=== PATIENT | female | born 1945 | race Caucasian/White ===

== ENCOUNTER → 2016-09-30 | Outpatient (CLI) | payer MEDICARE ==
--- NOTE | 2016-09-30 15:59 | BD ---
EXAMINATION TYPE: MG DEXA axial skeleton. DATE OF EXAM: 09/30/2016 11:35 AM COMPARISON: 12.30.2001 CLINICAL HISTORY: Z13.820 OSTEOPOROSIS Height: 63 Weight: 148 FRAX RISK QUESTIONS: Alcohol (3 or more units per day): NO Family History (Parent hip fracture): NO Glucocorticoids (More than 3mos): NO (Ex: prednisone, prednisolone, methylprednisolone, dexamethasone, and hydrocortisone). History of Fracture in Adulthood: NO Secondary Osteoporosis: 1. Type 1 Diabetes: NO 2. Hyperthyroidism: NO 3. Menopause before 45: NO 4. Malnutrition: NO 5. Chronic liver disease: NO Rheumatoid Arthritis: NO Current Tobacco Use: YES RISK FACTORS HISTORY OF: Family History of Osteoporosis: NO Smoke tobacco: YES, 1 PAC DAILY Drink Alcohol: SOCIAL Active: YES, PRETTY MUCH Diet low in dairy products/other sources of calcium: NO Postmenopausal woman: YES AT AGE 51 Lost more than 2 inches in height since high school: YES Adrenal Insufficiency: NO MEDICATIONS: Additional Medications: BP MEDS, STATIN FOR CHOLESTEROL, ATIVAN, CALCIUM AND VIT D WHEN SHE REMEMBERS Additional History: SMOKER, HYPERTENSION, HIGH CHOLESTEROL, ANXIETY EXAM MEASUREMENTS: Bone mineral densitometry was performed using the [employer]. Bone mineral density as measured about the Lumbar spine is: ----- L1-L4(G/cm2): 1.163 T Score Values are as follows: ----- L1: -0.7 ----- L2: -0.4 ----- L3: 0.1 ----- L4: 0.0 ----- L1-L4: -0.1 Bone mineral density has: Increased 4.6% since study of: 12.30.2001 Bone mineral density about the R hip (g/cm2): 0.792 Bone mineral density about the L hip (g/cm2): 0.808 T Score values are as follows: -----R Neck: -1.8 -----L Neck: -1.7 -----R Intertrochanter: -2.1 -----L Intertrochanter: -1.5 Bone mineral density has: Decreased -9.6% since study of: 12.30.2001 FRAX%'S: FOR MAJOR OSTEOPOROTIC FX: 11.5%.....FOR HIP FX: 3.2% PROBABILITY OF FX IN 10 YR S TIME IMPRESSION: Osteopenia (T Score between -2.5 and -1 as noted by T score values There is slightly increased risk of fracture and the patient may be considered for treatment. Re-Screen 1-2 years. NOTE: T-SCORE=SD OF THE YOUNG ADULT MEAN.
--- NOTE | 2016-10-02 09:38 | MM ---
Reason for exam: screening (asymptomatic). Last mammogram was performed 1 year and 6 months ago. History: Patient is postmenopausal. Family history of breast cancer in maternal aunt. 3 benign excisional biopsies of the left breast. Physical Findings: A clinical breast exam by your physician is recommended on an annual basis and results should be correlated with mammographic findings. MG 3D Screening Mammo W/Cad Bilateral CC and MLO view(s) were taken. Prior study comparison: March 27, 2015, bilateral MG screening mammo w CAD. March 25, 2014, bilateral MG screening mammo w CAD. The breast tissue is heterogeneously dense. This may lower the sensitivity of mammography. No significant changes when compared with prior studies. ASSESSMENT: Benign, BI-RAD 2 RECOMMENDATION: Routine screening mammogram of both breasts in 1 year.
== END | disposition home or self-care (01) ==
LOC: RADMAMWWP 10:33
PROVIDERS: ATTEND Internal Medicine
DX: Z12.31 Encounter for screening mammogram for malignant neoplasm of breast (principal); M85.80 Other specified disorders of bone density and structure, unspecified site
CPT/HCPCS: 77080; 77063; G0202

== ENCOUNTER → 2018-01-21 | Outpatient (CLI) | payer MEDICARE ==
--- NOTE | 2018-01-22 10:48 | MM ---
Reason for exam: screening (asymptomatic). Last mammogram was performed 1 year and 4 months ago. History: Patient is postmenopausal. Family history of breast cancer in maternal aunt. 3 benign excisional biopsies of the left breast. Physical Findings: A clinical breast exam by your physician is recommended on an annual basis and results should be correlated with mammographic findings. MG 3D Screening Mammo W/Cad Bilateral CC and MLO view(s) were taken. Prior study comparison: September 30, 2016, bilateral MG 3d screening mammo w/cad. March 27, 2015, bilateral MG screening mammo w CAD. No significant changes when compared with prior studies. ASSESSMENT: Benign, BI-RAD 2 RECOMMENDATION: Routine screening mammogram of both breasts in 1 year.
== END | disposition home or self-care (01) ==
LOC: RADMAMWWP 13:46
PROVIDERS: ATTEND Internal Medicine
DX: Z12.31 Encounter for screening mammogram for malignant neoplasm of breast (principal)
CPT/HCPCS: 77063; 77067

== ENCOUNTER → 2019-02-03 | Outpatient (CLI) | payer MEDICARE ==
--- NOTE | 2019-02-03 14:16 | CTL ---
EXAMINATION TYPE: CT Low Dose Lung DATE OF EXAM ORDERED: 02/03/2019 HISTORY: Personal history of tobacco abuse. Lung cancer screening CT DLP: 76.[address] CTDI: 2.2 mGy Automated exposure control for dose reduction was used. SCREENING VISIT: Initial COMPARISON: None TECHNIQUE: Low dose computed tomography scan was performed through the chest at 1 mm thick sections a nd reconstructed images in the coronal plane at [address] DIAGNOSTIC QUALITY: Satisfactory FINDINGS: LUNG NODULES: Present, detailed below: There is a subsolid right upper lobe 4 mm pulmonary nodule on series 4 image 91. There is a solid 2 mm pulmonary nodule in the right upper lobe laterally on image 111. LUNGS: COPD: Severity: Minimal centrilobular Fibrosis: Severity: Minimal apical scarring. No other fibrosis. Lymph nodes: Nonenlarged Other findings: There is a patchy groundglass density new branching vessels on series 4 image 95 post eriorly in the right upper lobe. Bandlike pleural parenchymal scarring is seen at the medial left ange g base. Some nodular thickening along the left hemidiaphragm as seen on series 4 image 250. Mild righ t hemidiaphragm elevation. RIGHT PLEURAL SPACE: Effusion: None Calcification: None Thickening: None Pneumothorax: None LEFT PLEURAL SPACE: Effusion: None Calcification: None Thickening: None Pneumothorax: None HEART: Heart Size: Nonenlarged, incidentally noted bovine configuration of the aortic arch, normal variant Coronary calcification: Mild Pericardial effusion: None OTHER FINDINGS: Upper abdomen: Small hiatal hernia Bony thorax: Mild multilevel degenerative change Supraclavicular region: Unremarkable IMPRESSION: Lung RADS 2-benign appearance or behavior-nodules with a very low likelihood of becoming a clinically active cancer due to size. Right sided nodules for which continued annual screening with low dose CT in 12 months is recommended. FOLLOW UP CT CHEST RECOMMENDATION: Continued annual screening with low dose CT in [address] LUNG RAD: 2
== END | disposition home or self-care (01) ==
LOC: RADCTMAIN 13:30
PROVIDERS: ATTEND Internal Medicine
DX: Z12.2 Encounter for screening for malignant neoplasm of respiratory organs (principal); R91.8 Other nonspecific abnormal finding of lung field; Z79.891 Long term (current) use of opiate analgesic

== ENCOUNTER → 2019-03-04 | Outpatient (CLI) | payer MEDICARE ==
--- NOTE | 2019-03-04 17:37 | BD ---
EXAMINATION TYPE: Axial Bone Density DATE OF EXAM: 03/04/2019 COMPARISON: 2017 CLINICAL HISTORY: 73-year-old female osteoporosis Height: 63 inches Weight: 152 FRAX RISK QUESTIONS: Alcohol (3 or more units per day): no Family History (Parent hip fracture): no Glucocorticoids (More than 3mos): no (Ex: prednisone, prednisolone, methylprednisolone, dexamethasone, and hydrocortisone). History of Fracture in Adulthood: no Secondary Osteoporosis: 1. Type 1 Diabetes: no 2. Hyperthyroidism: no 3. Menopause before 45: no 4. Malnutrition: no 5. Chronic liver disease: no Rheumatoid Arthritis: no Current Tobacco Use: yes RISK FACTORS HISTORY OF: Family History of Osteoporosis: no Active: yes Diet low in dairy products/other sources of calcium: somewhat Postmenopausal woman: yes Take estrogen and/or progesterone medications: no Lost more than 2 inches in height since high school: unsure, does not recall height in High School Frequent falls: no Poor Health: no Hyperparathyroidism: no Adrenal Insufficiency: no MEDICATIONS: Prednisone or other steroids: no Thyroid Medications: no Osteoporosis Medications: yes Which medication: Alendronate sodium How Long: about one year Additional Medications: blood pressure med Additional History: EXAM MEASUREMENTS: Bone mineral densitometry was performed using the [employer]. Bone mineral density as measured about the Lumbar spine is: ----- L1-L4(G/cm2): 1.191 T Score Values are as follows: ----- L2: -0.5 ----- L3: 0.8 ----- L4: 0.4 ----- L1-L4: 0.1 Bone mineral density has: Increased 3.6% since study of: 09/30/2016 Bone mineral density about the R hip (g/cm2): 0.816 Bone mineral density about the L hip (g/cm2): 0.795 T Score values are as follows: -----R Neck: -1.6 -----L Neck: -1.7 -----R Total: -1.4 -----L Total: -1.5 Bone mineral density has: Increased 3.0% since study of: 09/30/2016 IMPRESSION: Osteopenia (T Score between -2.5 and -1). There is slightly increased risk of fracture and the patient may be considered for treatment. Re-Screen 2-5 years. NOTE: T-SCORE=SD OF THE YOUNG ADULT MEAN.
--- NOTE | 2019-03-09 09:43 | MM ---
Reason for exam: screening (asymptomatic). Last mammogram was performed 1 year and 1 month ago. History: Patient is postmenopausal. Family history of breast cancer in maternal aunt. 3 benign excisional biopsies of the left breast. Physical Findings: A clinical breast exam by your physician is recommended on an annual basis and results should be correlated with mammographic findings. MG 3D Screening Mammo W/Cad Bilateral CC and MLO view(s) were taken. Prior study comparison: January 21, 2018, bilateral MG 3d screening mammo w/cad. September 30, 2016, bilateral MG 3d screening mammo w/cad. The breast tissue is heterogeneously dense. This may lower the sensitivity of mammography. Benign appearing bilateral calcifications. No suspicious abnormality. Post surgical change on the left. No significant changes when compared with prior studies. ASSESSMENT: Benign, BI-RAD 2 RECOMMENDATION: Routine screening mammogram of both breasts in 1 year.
== END | disposition home or self-care (01) ==
LOC: RADMAMWWP 12:56
PROVIDERS: ATTEND Internal Medicine
DX: Z12.31 Encounter for screening mammogram for malignant neoplasm of breast (principal); M85.80 Other specified disorders of bone density and structure, unspecified site; M81.0 Age-related osteoporosis without current pathological fracture
CPT/HCPCS: 77063; 77067; 77080

== ENCOUNTER → 2020-07-14 | Outpatient (CLI) | payer MEDICARE ==
--- NOTE | 2020-07-18 08:34 | MM ---
Reason for exam: screening (asymptomatic). Last mammogram was performed 1 year and 4 months ago. History: Patient is postmenopausal. Family history of breast cancer in maternal aunt. 3 benign excisional biopsies of the left breast. Physical Findings: A clinical breast exam by your physician is recommended on an annual basis and results should be correlated with mammographic findings. MG 3D Screening Mammo W/Cad Bilateral CC and MLO view(s) were taken. Prior study comparison: March 04, 2019, bilateral MG 3d screening mammo w/cad. January 21, 2018, bilateral MG 3d screening mammo w/cad. The breast tissue is heterogeneously dense. This may lower the sensitivity of mammography. Benign appearing bilateral calcifications. No significant changes when compared with prior studies. ASSESSMENT: Benign, BI-RAD 2 RECOMMENDATION: Routine screening mammogram of both breasts in 1 year.
== END | disposition home or self-care (01) ==
LOC: RADMAMWWP 13:06
PROVIDERS: ATTEND Internal Medicine Geriatric Medicine
DX: Z12.31 Encounter for screening mammogram for malignant neoplasm of breast (principal)
CPT/HCPCS: 77063; 77067

== ENCOUNTER → 2021-08-23 | Outpatient (CLI) | payer MEDICARE ==
--- NOTE | 2021-08-27 10:34 | MM ---
Reason for exam: screening (asymptomatic). Last mammogram was performed 1 year and 1 month ago. History: Patient is postmenopausal. Family history of breast cancer in maternal aunt. 3 benign excisional biopsies of the left breast. Physical Findings: A clinical breast exam by your physician is recommended on an annual basis and results should be correlated with mammographic findings. MG 3D Screening Mammo W/Cad Bilateral CC and MLO view(s) were taken. Prior study comparison: July 14, 2020, bilateral MG 3d screening mammo w/cad. March 04, 2019, bilateral MG 3d screening mammo w/cad. Finding: There are increasing coarse heterogeneous, grouped/clustered calcifications in the upper outer quadrant, middle position of the left breast. New finding since July 14, 2020 and March 04, 2019. ASSESSMENT: Incomplete: need additional imaging evaluation, BI-RAD 0 RECOMMENDATION: Special view mammogram of the left breast. [facility] will attempt to contact patient to return for supplemental views.
== END | disposition home or self-care (01) ==
LOC: RADMAMWWP 15:24
PROVIDERS: ATTEND Internal Medicine Geriatric Medicine
DX: Z12.31 Encounter for screening mammogram for malignant neoplasm of breast (principal)
CPT/HCPCS: 77063; 77067

== ENCOUNTER → 2021-08-30 | Outpatient (CLI) | payer MEDICARE ==
--- NOTE | 2021-08-30 15:05 | MM ---
Reason for exam: additional evaluation requested from abnormal screening. Last mammogram was performed less than 1 month ago. History: Patient is postmenopausal. Family history of breast cancer in maternal aunt. 3 benign excisional biopsies of the left breast. Physical Findings: Nurse did not find any significant physical abnormalities on exam. MG 3D Work Up W/Cad LT CC with magnification, LM with magnification, and LM view(s) were taken of the left breast. Prior study comparison: August 23, 2021, bilateral MG 3d screening mammo w/cad. July 14, 2020, bilateral MG 3d screening mammo w/cad. The breast tissue is heterogeneously dense. This may lower the sensitivity of mammography. Post excisional changes left breast. 12 o'clock posterior grouped microcalcifications have round and punctate morphology on magnification views. 6 month follow up recommended. These results were verbally communicated with the patient and result sheet given to the patient on 08/30/21. ASSESSMENT: Probably benign, BI-RAD 3 RECOMMENDATION: Follow-up diagnostic mammogram of the left breast in 6 months.
== END | disposition home or self-care (01) ==
LOC: RADMAMWWP 13:16
PROVIDERS: ATTEND Internal Medicine Geriatric Medicine
DX: R92.8 Other abnormal and inconclusive findings on diagnostic imaging of breast (principal)
CPT/HCPCS: 77065; G0279; 77061

== ENCOUNTER → 2022-02-27 | Outpatient (CLI) | payer MEDICARE ==
--- NOTE | 2022-02-27 13:37 | MM ---
Reason for Exam: Follow-up at short interval from prior study. Last screening mammogram was performed 6 month(s) ago. Patient History: Menarche at age 13. First Full-Term at age 22. Left ovary removed at age 51. Right ovary removed at age 51. Hysterectomy at age 51. Postmenopausal. Benign Excisional Biopsy on the left side. Benign Excisional Biopsy on the left side. Benign Excisional Biopsy on the left side. Maternal aunt had breast cancer. Risk Values: Stephany 5 year model risk: 2.4%. NCI Lifetime model risk: 5.1%. Prior Study Comparison: 07/14/2020 Bilateral Screening Mammogram, [facility]ED WITH [facility]. 08/23/2021 Bilateral Screening Mammogram, MERGED WITH [facility]. 08/30/2021 Left Diagnostic Mammogram, MERGED WITH [facility]. Tissue Density: Left: The breast tissue is heterogeneously dense. This may lower the sensitivity of mammography. Findings: Analyzed By CAD. Stable group of benign punctate calcifications in the left breast posterior upper aspect. Stable distortion left breast. No new mass. Overall Assessment: Benign, BI-RAD 2 Management: Screening Mammogram of both breasts in 6 months. A clinical breast exam by your physician is recommended on an annual basis and results should be correlated with mammographic findings. This exam should not preclude additional follow-up of suspicious palpable abnormalities. Results were given to the patient verbally at the time of exam. Electronically signed and approved by: Zack Calderon M.D.
== END | disposition home or self-care (01) ==
LOC: RADMAMWWP 12:54
PROVIDERS: ATTEND Internal Medicine Geriatric Medicine
DX: N63.0 Unspecified lump in unspecified breast (principal)
CPT/HCPCS: 77065; G0279; 77061

== ENCOUNTER 2022-12-24 15:21 | Emergency (ER) | payer MEDICARE ==
[2022-12-24 15:52] VITALS: RESP 18; TEMP 98.2
[2022-12-24] MEDS ORDERED: SODIUM CHLORIDE 0.9% 1,000 ML IV ONE (16:35)
[2022-12-24] MEDS ORDERED: LORazepam 2 MG/ML INJ IV STA ×2 (16:35→17:20)
--- NOTE | 2022-12-24 16:55 | ED ---
General Adult HPI - General Chief complaint: Altered Mental Status Stated complaint: anxiety Time Seen by Provider: 12/24/22 16:18 Source: patient, RN notes reviewed Mode of arrival: wheelchair Limitations: no limitations - History of Present Illness Initial comments: 77-year-old female with no significant past medical history presents the emergency department with a chief complaint of increased anxiety and altered mental status. Patient reports that she tested positive for Covid on Friday, she was instructed to stop taking her lorazepam at that time. She was instructed to start taking Paxlovid. She reports increased symptoms of confu vira and anxiousness ever since. She is normally a and O 3 however today she has a note 2. She denies any headache, vision changes, vision loss, chest pain, palpitations, abdominal pain, nausea, vomiting. She has never had this before. She reports that she takes lorazepam twice a day daily. - Related Data Home Medications Medication Instructions Recorded Confirmed Citalopram Hydrobromide [CeleXA] 20 mg PO DAILY 07/22/14 12/24/22 Lisinopril-Hctz 20-25 mg 1 tab PO DAILY 07/22/14 12/24/22 [Zestoretic 20-25] Metoprolol Tartrate [Lopressor] 25 mg PO BID 07/22/14 12/24/22 Albuterol Inhaler [Ventolin Hfa 2 puff INHALATION RT-Q6H PRN 12/24/22 12/24/22 Inhaler] Alendronate Sodium 70 mg PO MO 12/24/22 12/24/22 Aspirin EC [Ecotrin Low Dose] 81 mg PO DAILY 12/24/22 12/24/22 Benzonatate [Tessalon Perle] 200 mg PO TID PRN 12/24/22 12/24/22 Ferrous Sulfate [Feosol] 325 mg PO DAILY 12/24/22 12/24/22 LORazepam [Ativan] 1 mg PO BID PRN 12/24/22 12/24/22 Rosuvastatin [Crestor] 10 mg PO DAILY 12/24/22 12/24/22 Spironolactone [Aldactone] 25 mg PO DAILY 12/24/22 12/24/22 Allergies Allergy/AdvReac Type Severity Reaction Status Date / Time No Known Allergies Allergy Verified 12/24/22 17:21 Review of Systems ROS Statement: Those systems with pertinent positive or pertinent negative responses have been documented in the HPI. ROS Other: All systems not noted in ROS Statement are negative. Past Medical History Past Medical History: Hyperlipidemia, Hypertension Additional Past Medical History / Comment(s): osteopenia History of Any Multi-Drug Resistant Organisms: None Reported Past Surgical History: Breast Surgery, Hernia Repair, Hysterectomy Past Psychological History: Anxiety, Depression Smoking Status: Former smoker Past Alcohol Use History: Rare Past Drug Use History: None Reported General Exam Limitations: no limitations General appearance: alert, in no apparent distress Head exam: Present: atraumatic, normocephalic, normal inspection Eye exam: Present: normal appearance, PERRL, EOMI. Absent: scleral icterus, conjunctival injection, periorbital swelling ENT exam: Present: normal exam, mucous membranes moist Neck exam: Present: normal inspection. Absent: tenderness, meningismus, lymphadenopathy Respiratory exam: Present: normal lung sounds bilaterally. Absent: respiratory distress, wheezes, rales, rhonchi, stridor Cardiovascular Exam: Present: regular rate, normal rhythm, normal heart sounds. Absent: systolic murmur, diastolic murmur, rubs, gallop, clicks GI/Abdominal exam: Present: soft, normal bowel sounds. Absent: distended, tenderness, guarding, rebound, rigid Extremities exam: Present: normal inspection, full ROM, normal capillary refill. Absent: tenderness, pedal edema, joint swelling, calf tenderness Back exam: Present: normal inspection Neurological exam: Present: alert, oriented X3, CN II-XII intact, normal gait, motor sensory deficit Expanded Patient oriented to: Present: person, place Speech: Present: fluid speech Cranial nerves: EOM's Intact: Normal, Nystagmus: Normal Cerebellar function: Finger to Nose: Normal, Heel to [place]: Normal Upper motor neuron: Alex Neglect: Normal, Pronator Drift: Normal Sensory exam: Upper Extremity Light Touch: Normal, Lower Extremity Light Touch: Normal Motor strength exam: RUE: 5, LUE: 5, RLE: 5, LLE: 5 Eye Response: (4) open spontaneously Motor Response: (6) obeys commands Verbal Response: (5) oriented Psychiatric exam: Present: normal affect, normal mood Skin exam: Present: warm, dry, intact, normal color. Absent: rash Course Vital Signs 12/24/22 12/24/2223 15:45 18:32 20:07 Temperature 98.2 F Pulse Rate 60 63 76 Respiratory 18 18 18 Rate Blood Pressure 149/87 149/95 149/87 O2 Sat by Pulse 97 97 95 Oximetry Medical Decision Making - Medical Decision Making Was pt. sent in by a medical professional or institution ([facility], [employer], urgent care, hospital, or care home...) When possible be specific @ -[No] Did you speak to anyone other than the patient for history (EMS, parent, family, police, friend...)? What history was obtained from this source @ -[No] Did you review nursing and triage notes (agree or disagree)? Why? @ -[I reviewed and agree with nursing and triage notes] Were old charts reviewed (outside hosp., previous admission, EMS record, old EKG, old radiological studies, urgent care reports/EKG's, care home records)? Report findings @ -[No old charts were reviewed] Differential Diagnosis (chest pain, altered mental status, abdominal pain women, abdominal pain men, vaginal bleeding, weakness, fever, dyspnea, syncope, headache, dizziness, GI bleed, back pain, seizure, CVA, palpatations, mental health, musculoskeletal)? @ -[not applicable] EKG interpreted by me (3pts min.). @ -[As above] X-rays interpreted by me (1pt min.). @ -[None done] CT interpreted by me (1pt min.). @ -CT head negative for any evidence of intracranial process U/S interpreted by me (1pt. min.). @ -[None done] What testing was considered but not performed or refused? (CT, X-rays, U/S, labs)? Why? @ -[None] What meds were considered but not given or refused? Why? @ -[None] Did you discuss the management of the patient with other professionals (professionals i.e. [facility], [employer], lab, RT, psych nurse, health and social care teacher, orthopaedic general, teacher, ict help desk officer, case assistant)? Give summary @ -[No] Was smoking cessation discussed for >3mins.? @ -[No] Was critical care preformed (if so, how long)? @ -[No] Were there social determinants of health that impacted care today? How? (Homelessness, low income, unemployed, alcoholism, drug addiction, transportation, low edu. Level, literacy, decrease access to med. care, long term, rehab)? @ -[No] Was there de-escalation of care discussed even if they declined (Discuss DNR or withdrawal of care, Hospice)? DNR status @ -[No] What co-morbidities impacted this encounter? (DM, HTN, Smoking, COPD, CAD, Ca ncer, CVA, ARF, Chemo, Hep., AIDS, mental health diagnosis, sleep apnea, morbid obesity)? @ -[None] Was patient admitted / discharged? Hospital course, mention meds given and route, prescriptions, significant lab abnormalities, going to OR and other pertinent info. @ -Discharged. This is a 77 year-old female who presents to the emergency department with medication reaction. Patient had a thorough history and physical exam performed while in the. Physical exam is essentially unremarkable heart rate regular rate and rhythm, lungs clear to auscultation bilaterally abdomen is soft and nontender. there are no focal neuro deficits noticed patient is able to indicate a steady gait. Patient had CT which were essentially unremarkable. I discussed results in detail with the patient who verbalized understanding and all questions were addressed. She was given 1L IV fluids and Ativan with symptomatic relief on the ED. sHe was discharged in stable condition. He was encouraged to follow up with his PCP in 1-2 days. Case discussed with Dr. Padron Sachi who agrees with plan of care Undiagnosed new problem with uncertain prognosis? @ -[No] Drug Therapy requiring intensive monitoring for toxicity (Heparin, Nitro, Insulin, Cardizem)? @ -[No] Were any procedures done? @ -[No] Diagnosis/symptom? @ -altered mental status - medication reaction - medication withdrawal Acute, or Chronic, or Acute on Chronic? @ -acute Uncomplicated (without systemic symptoms) or Complicated (systemic symptoms)? @ -uncomplicated Side effects of treatment? @ -[No] Exacerbation, Progression, or Severe Exacerbation? @ -[No] Poses a threat to life or bodily function? How? (Chest pain, [place], MA, pneumonia, PE, COPD, DKA, ARF, appy, cholecystitis, CVA, Diverticulitis, Homicidal, Suicidal, threat to staff... and all critical care pts) @ -low likelihood - Lab Data Result diagrams: 12/24/22 16:42 12/24/22 16:42 Lab Results 12/24/22 12/24/22 12/24/22 Range/Units 16:42 16:42 16:42 WBC 11.9 H (3.8-10.6) k/uL RBC 4.73 (3.80-5.40) m/uL Hgb 15.3 (11.4-16.0) gm/dL Hct 44.4 (34.0-46.0) % MCV 93.9 (80.0-100.0) fL MCH 32.4 (25.0-35.0) pg MCHC 34.5 (31.0-37.0) g/dL RDW 11.8 (11.5-15.5) % Plt Count 320 (150-450) k/uL MPV 8.2 Neutrophils % 88 % Lymphocytes % 7 % Monocytes % 5 % Eosinophils % 1 % Basophils % 0 % Neutrophils # 10.4 H (1.3-7.7) k/uL Lymphocytes # 0.8 L (1.0-4.8) k/uL Monocytes # 0.5 (0-1.0) k/uL Eosinophils # 0.1 (0-0.7) k/uL Basophils # 0.0 (0-0.2) k/uL PT 10.1 (9.0-12.0) sec INR 1.0 (<1.2) APTT 22.4 (22.0-30.0) sec Sodium 127 L (137-145) mmol/L Potassium 4.5 (3.5-5.1) mmol/L Chloride 90 L (98-107) mmol/L Carbon Dioxide 25 (22-30) mmol/L Anion Gap 12 mmol/L BUN 35 H (7-17) mg/dL Creatinine 0.94 (0.52-1.04) mg/dL Est GFR (CKD-EPI)AfAm 68 (>60 ml/min/1.73 sqM) Est GFR (CKD-EPI)NonAf 59 (>60 ml/min/1.73 sqM) Glucose 97 (74-99) mg/dL Calcium 10.2 (8.4-10.2) mg/dL Total Bilirubin 0.6 (0.2-1.3) mg/dL AST 38 H (14-36) U/L ALT 33 (4-34) U/L Alkaline Phosphatase 56 (38-126) U/L Ammonia (<30) umol/L Troponin I (0.000-0.034) ng/mL Total Protein 7.8 (6.3-8.2) g/dL Albumin 4.6 (3.5-5.0) g/dL Urine Opiates Screen (NotDetected) Ur Oxycodone Screen (NotDetected) Urine Methadone Screen (NotDetected) Ur Propoxyphene Screen (NotDetected) Ur Barbiturates Screen (NotDetected) U Tricyclic Antidepress (NotDetected) Ur Phencyclidine Scrn (NotDetected) Ur Amphetamines Screen (NotDetected) U Methamphetamines Scrn (NotDetected) U Benzodiazepines Scrn (NotDetected) Urine Cocaine Screen (NotDetected) U Marijuana (THC) Screen (NotDetected) 12/24/22 12/24/22 12/24/22 Range/Units 16:42 16:42 16:45 WBC (3.8-10.6) k/uL RBC (3.80-5.40) m/uL Hgb (11.4-16.0) gm/dL Hct (34.0-46.0) % MCV (80.0-100.0) fL MCH (25.0-35.0) pg MCHC (31.0-37.0) g/dL RDW (11.5-15.5) % Plt Count (150-450) k/uL MPV Neutrophils % % Lymphocytes % % Monocytes % % Eosinophils % % Basophils % % Neutrophils # (1.3-7.7) k/uL Lymphocytes # (1.0-4.8) k/uL Monocytes # (0-1.0) k/uL Eosinophils # (0-0.7) k/uL Basophils # (0-0.2) k/uL PT (9.0-12.0) sec INR (<1.2) APTT (22.0-30.0) sec Sodium (137-145) mmol/L Potassium (3.5-5.1) mmol/L Chloride (98-107) mmol/L Carbon Dioxide (22-30) mmol/L Anion Gap mmol/L BUN (7-17) mg/dL Creatinine (0.52-1.04) mg/dL Est GFR (CKD-EPI)AfAm (>60 ml/min/1.73 sqM) Est GFR (CKD-EPI)NonAf (>60 ml/min/1.73 sqM) Glucose (74-99) mg/dL Calcium (8.4-10.2) mg/dL Total Bilirubin (0.2-1.3) mg/dL AST (14-36) U/L ALT (4-34) U/L Alkaline Phosphatase (38-126) U/L Ammonia <9 (<30) umol/L Troponin I <0.012 (0.000-0.034) ng/mL Total Protein (6.3-8.2) g/dL Albumin (3.5-5.0) g/dL Urine Opiates Screen Not Detected (NotDetected) Ur Oxycodone Screen Not Detected (NotDetected) Urine Methadone Screen Not Detected (NotDetected) Ur Propoxyphene Screen Not Detected (NotDetected) Ur Barbiturates Screen Not Detected (NotDetected) U Tricyclic Antidepress Not Detected (NotDetected) Ur Phencyclidine Scrn Not Detected (NotDetected) Ur Amphetamines Screen Not Detected (NotDetected) U Methamphetamines Scrn Not Detected (NotDetected) U Benzodiazepines Scrn Detected H (NotDetected) Urine Cocaine Screen Not Detected (NotDetected) U Marijuana (THC) Screen Not Detected (NotDetected) Disposition Clinical Impression: Altered mental status, Medication adverse effect Disposition: HOME SELF-CARE Condition: Stable Additional Instructions: Please discontinue Plavixlovid, and continue with regular medication regimen as prescribed Please return to the nearest emergency department if symptoms worsen or persist Is patient prescribed a controlled substance at d/c from ED?: No Referrals: Nikhil Silva MD [Primary Care Provider] - 1-2 days Time of Disposition: 19:09
[2022-12-24 17:17] LABS: Basophils % (A) 0 %; Eosinophils # (A) 0.1 k/uL (0-0.7); Eosinophils % (A) 1 %; HCT 44.4 % (34.0-46.0); HGB 15.3 gm/dL (11.4-16.0); Lymphocytes # (A) 0.8 k/uL (1.0-4.8); Lymphocytes % (A) 7 %; MCH 32.4 pg (25.0-35.0); MCHC 34.5 g/dL (31.0-37.0); MCV 93.9 fL (80.0-100.0); Mean Platelet Volume 8.2; Monocytes # (A) 0.5 k/uL (0-1.0); Monocytes % (A) 5 %; Neutrophils # (A) 10.4 k/uL (1.3-7.7); Neutrophils % (A) 88 %; Platelet Count 320 k/uL (150-450); RBC 4.73 m/uL (3.80-5.40); RDW 11.8 % (11.5-15.5); WBC 11.9 k/uL (3.8-10.6)
--- NOTE | 2022-12-24 17:29 | CT ---
EXAMINATION TYPE: CT brain wo con CT DLP: 1200.4 mGycm, Automated exposure control for dose reduction was used. DATE OF EXAM: 12/24/2022 5:12 PM COMPARISON: 10/11/2011. CLINICAL INDICATION:Female, 77 years old with history of Altered mental status, AMS, weakness and anx iety TECHNIQUE: Brain: Axial CT images of the brain were obtained with coronal and sagittal reformats created and rev iewed. Contrast used: None. Oral contrast used: None. FINDINGS: Brain: Extra-axial spaces: No abnormal extra-axial fluid collections. Ventricular system: Within normal limits Cerebral parenchyma: No acute intraparenchymal hemorrhage or mass effect. The stahl-white junction is well differentiated. Cerebellum: Unremarkable. Mass effect: No evidence of midline shift. Intracranial vasculature: Atherosclerotic calcifications of the intracranial vessels. Soft tissues: Normal. Calvarium/osseous structures: No depressed skull fracture. Paranasal sinuses and mastoid air cells: Mild scattered paranasal sinus disease. Visualized orbits: Orbital contents are intact. IMPRESSION: No acute intracranial process.
--- NOTE | 2022-12-24 17:31 | XR ---
EXAMINATION TYPE: XR chest 2V DATE OF EXAM: 12/24/2022 5:21 PM COMPARISON: Chest radiographs from 07/22/2014 TECHNIQUE: XR chest 2V Frontal and lateral views of the chest. CLINICAL INDICATION:Female, 77 years old with history of altered mental status; FINDINGS: Lungs/Pleura: Increased prominence of airspace opacities which appear new from prior most pronounced in the lower lungs. No evidence of pneumothorax or pleural effusion. Pulmonary vascularity: Unremarkable. Heart/mediastinum: Cardiomediastinal silhouette is unremarkable. Atherosclerotic calcifications are seen in the aorta. Musculoskeletal: No acute osseous pathology. IMPRESSION: Multifocal airspace opacities predominantly in the lower lungs concerning for pneumonia. Consider asp iration.
[2022-12-24 17:36] LABS: Albumin 4.6 g/dL (3.5-5.0); Calcium 10.2 mg/dL (8.4-10.2); Potassium 4.5 mmol/L (3.5-5.1); Total Bilirubin 0.6 mg/dL (0.2-1.3); Total Protein 7.8 g/dL (6.3-8.2)
[2022-12-24 17:37] LABS: Partial Thromboplastin Time 22.4 sec (22.0-30.0); Prothrombin Time 10.1 sec (9.0-12.0)
[2022-12-24 18:17] LABS: Amphetamine Screen,Urine Not Detected (NotDetected); Barbiturate Screen,Urine Not Detected (NotDetected); Benzodiazepines Screen,Urine Detected (NotDetected); Cocaine Screen,Urine Not Detected (NotDetected); Methadone Screen, Urine Not Detected (NotDetected); Opiate Screen,Urine Not Detected (NotDetected); Oxycodone Screen, Urine Not Detected (NotDetected); Phencyclidine Screen,Urine Not Detected (NotDetected); Tricyclic Antidepressant,Urine Not Detected (NotDetected); Urn Cannabinoid Scrn Not Detected (NotDetected)
[2022-12-24 20:08] VITALS: BP 149/87; PULSE 76
== END 2022-12-24 20:10 | disposition home or self-care (01) ==
LOC: EC 15:21
DX: R41.82 Altered mental status, unspecified (principal); T50.995A Adverse effect of other drugs, medicaments and biological substances, initial encounter; I10 Essential (primary) hypertension; E78.5 Hyperlipidemia, unspecified; F32.A Depression, unspecified; F41.9 Anxiety disorder, unspecified; Z79.82 Long term (current) use of aspirin; Z79.899 Other long term (current) drug therapy; Z87.891 Personal history of nicotine dependence
CPT/HCPCS: 36415; 93005; 80053; 82140; 84484; 85025; 85610; 85730; 80306; 71046; 70450; 99285; 96374; 96376; 96361; J2060

== ENCOUNTER → 2023-03-20 | Outpatient (CLI) | payer MEDICARE ==
--- NOTE | 2023-03-20 16:33 | BD ---
EXAMINATION TYPE: Axial Bone Density DATE OF EXAM: 03/20/2023 CLINICAL HISTORY: 77 years old Female. 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 History of Fracture in Adulthood: No Secondary Osteoporosis: 1. Type 1 Diabetes: No 2. Hyperthyroidism: No 3. Menopause before 45: No 4. Malnutrition: No 5. Chronic liver disease: No Rheumatoid Arthritis: No Current Tobacco Use: No RISK FACTORS HISTORY OF: Hip Fracture (Right/Left): No Spine Fracture: No History of Wrist Fracture: No Surgery to Spine/Hip(right/left)/Wrist (right/left): No Family History of Osteoporosis: No Active: Yes Diet low in dairy products/other sources of calcium: No Postmenopausal woman: Yes Lost more than 2 inches in height since high school: No Frequent falls: No Poor Health: No Hyperparathyroidism: No Adrenal Insufficiency: No MEDICATIONS: Prednisone or other steroids: No Thyroid Medications: No Osteoporosis Medications: No Additional Medications: Blood pressure meds, iron pill, nerve pill Additional History: No EXAM MEASUREMENTS: Bone mineral densitometry was performed using the [employer]. Bone mineral density as measured about the Lumbar spine is: ----- L1-L4(G/cm2): 1.077 T Score Values are as follows: ----- L1: -0.5 ----- L2: -1.4 ----- L3: -1.5 ----- L4: -0.4 ----- L1-L4: -0.9 Z Score Values are as follows: ----- L1: 1.0 ----- L2: 0.0 ----- L3: 0.0 ----- L4: 1.1 ----- L1-L4: 0.6 Bone mineral density has: decreased -9.6% since study of: 03/04/2019 Bone mineral density about the R hip (g/cm2): 0.817 Bone mineral density about the L hip (g/cm2): 0.841 T Score values are as follows: -----R Neck: -1.6 -----L Neck: -1.8 -----R Total: -1.5 -----L Total: -1.3 Z Score values are as follows: -----R Neck: 0.2 -----L Neck: 0.0 -----R Total: 0.1 -----L Total: 0.3 Bone mineral density has: increased 0.2% since study of: 03/04/2019 FRAX%s: The graph provided illustrates a 13.0% chance for a major osteoporotic fx and a 3.1% chance f or the hips probability for fx in 10 years time. IMPRESSION: Osteopenia (T Score between -2.5 and -1). There is slightly increased risk of fracture and the patient may be considered for treatment. Re-Screen 2-5 years. NOTE: T-SCORE=SD OF THE YOUNG ADULT MEAN.
--- NOTE | 2023-03-21 08:24 | MM ---
Reason for Exam: Screening (asymptomatic). Last mammogram was performed 1 year(s) and 7 month(s) ago. Patient History: Menarche at age 13. First Full-Term at age 22. Left ovary removed at age 51. Right ovary removed at age 51. Hysterectomy at age 51. Postmenopausal. Benign Excisional Biopsy on the left side. Benign Excisional Biopsy on the left side. Benign Excisional Biopsy on the left side. Maternal aunt had breast cancer. Risk Values: Stephany 5 year model risk: 2.4%. NCI Lifetime model risk: 4.8%. Prior Study Comparison: 08/23/2021 Bilateral Screening Mammogram, [facility]. 08/30/2021 Left Diagnostic Mammogram, [facility]. 02/27/2022 Left MG 3D diag mammo w/cad LT, [facility]. Tissue Density: The breast tissue is heterogeneously dense. This may lower the sensitivity of mammography. Findings: Analyzed By CAD. Pattern appears symmetrical and stable. Scattered stable grouped benign-appearing calcifications are present bilaterally. Benign round calcifications within the right breast. No suspicious groups of microcalcifications, spiculated or lobular masses, architectural distortion or other secondary signs of malignancy are mammographically apparent. Overall Assessment: Benign, BI-RAD 2 Management: Screening Mammogram of both breasts in 1 year. A negative mammogram report should not preclude additional follow up of suspicious palpable abnormalities. Patient should continue monthly self breast exam. A clinical breast exam by your physician is recommended on an annual basis and results should be correlated with mammographic findings. Electronically signed and approved by: Shahab Santos D.O. Radiologis
== END | disposition home or self-care (01) ==
LOC: RADBDWWP 15:32
PROVIDERS: ATTEND Internal Medicine Geriatric Medicine
DX: Z12.31 Encounter for screening mammogram for malignant neoplasm of breast (principal); M81.0 Age-related osteoporosis without current pathological fracture; M85.89 Other specified disorders of bone density and structure, multiple sites
CPT/HCPCS: 77063; 77067; 77080

== ENCOUNTER 2023-09-06 02:27 | Observation (INO) | payer MEDICARE ==
[2023-09-06] MEDS ORDERED: SODIUM CHLORIDE 0.9% 500 ML 500 ML IV STA (03:02)
[2023-09-06] MEDS ORDERED: ONDANSETRON 4 MG/2 ML VIAL IVP STA (04:13)
[2023-09-06 04:21] LABS: ALT 18 U/L (4-34); AST 27 U/L (14-36); African American GFR (CKD) >90 (>60 ml/min/1.73 sqM); Albumin 3.9 g/dL (3.5-5.0); Alkaline Phosphatase 64 U/L (38-126); Amylase 56 U/L (30-110); Anion Gap 12 mmol/L; Blood Urea Nitrogen 21 mg/dL (7-17); C Reactive Protein 7.1 mg/dL (<1.0); Calcium 8.9 mg/dL (8.4-10.2); Carbon Dioxide 22 mmol/L (22-30); Chloride 91 mmol/L (98-107); Glucose 116 mg/dL (74-99); Lipase 54 U/L (23-300); Non-African American GFR(CKD) 82 (>60 ml/min/1.73 sqM); Sodium 125 mmol/L (137-145); Total Bilirubin 0.5 mg/dL (0.2-1.3); Total Protein 6.7 g/dL (6.3-8.2)
[2023-09-06 04:23] LABS: Basophils % (A) 0 %; Eosinophils % (A) 0 %; HGB 12.7 gm/dL (11.4-16.0); Lymphocytes # (A) 0.5 k/uL (1.0-4.8); Lymphocytes % (A) 4 %; MCHC 34.3 g/dL (31.0-37.0); Mean Platelet Volume 7.5; Monocytes # (A) 0.5 k/uL (0-1.0); Monocytes % (A) 4 %; Neutrophils # (A) 11.5 k/uL (1.3-7.7); Neutrophils % (A) 91 %; Platelet Count 267 k/uL (150-450); RBC 3.74 m/uL (3.80-5.40); RDW 12.9 % (11.5-15.5); WBC 12.6 k/uL (3.8-10.6)
--- NOTE | 2023-09-06 07:02 | CT ---
EXAMINATION TYPE: CT abdomen pelvis wo con CT DLP: 536 mGycm, Automated exposure control for dose reduction was used. DATE OF EXAM: 09/06/2023 4:40 AM COMPARISON: CT abdomen pelvis most recent from 07/31/2015 CLINICAL INDICATION:Female, 78 years old with history of abdominal pain, acute, nonlocalized; TECHNIQUE: Axial CT abdomen pelvis wo con;Sagittal and coronal reformats were created on a separate workstation. Contrast used: mL of , (none if empty) Oral contrast used: (none if empty) FINDINGS: LOWER CHEST: Unremarkable ABDOMEN LIVER: Unremarkable GALLBLADDER AND BILE DUCTS: Unremarkable. PANCREAS: Unremarkable. SPLEEN: Unremarkable. ADRENAL GLANDS: Unremarkable. KIDNEYS AND URETERS: No evidence of hydronephrosis or renal calculus. The ureters are unremarkable. PELVIS BLADDER: Unremarkable REPRODUCTIVE: Unremarkable. ABDOMEN & PELVIS STOMACH AND BOWEL: No evidence of bowel obstruction. Extensive colonic diverticula. Large hiatal azucena ia. The appendix is normal. There is circumferential wall thickening of thee ascending colon surround ing fat stranding changes. PERITONEUM/RETROPERITONEUM: No evidence of pneumoperitoneum or free fluid. VASCULATURE: Mild atherosclerotic calcifications are present throughout the abdominal aorta and its b ranches. No evidence of aortic aneurysm. MUSCULOSKELETAL: No acute osseous abnormalities. Moderate disc degeneration changes are present throu ghout the thoracolumbar spine. LYMPH NODES: No gross evidence for lymphadenopathy. SOFT TISSUE/ABDOMINAL WALL: Right inguinal hernia containing portion of the bladder wall. IMPRESSION: 1. Colitis of the ascending colon 2. Colonic diverticulosis. 3. Large hiatal hernia. 4. Right inguinal hernia containing a portion of the bladder wall.
[2023-09-06] MEDS ORDERED: MORPHINE SULFATE 4 MG/ML SYRINGE IV PRN (07:17)
[2023-09-06] MEDS ORDERED: NALOXONE 0.4 MG/ML 1 ML VIAL IV PRN (07:17)
--- NOTE | 2023-09-06 07:21 | ED ---
General Adult HPI - General Chief complaint: Syncope Stated complaint: V/D, Fall Time Seen by Provider: 09/06/23 02:48 Source: patient Mode of arrival: wheelchair Limitations: no limitations - History of Present Illness Initial comments: this patient is a 78-year-old woman who presents to have evaluation for constellation of symptoms that been going on for nearly 3 days now. The patient states that she started having nausea and vomiting as well as some right-sided abdominal pain. She also has had a number of episodes of diarrhea. She has not noted bloody or dark tarry stools. No blood or coffee-ground emesis. She states that she has been feeling progressively weaker over the course of yesterday into tonight. The patient had to get up to use the bathroom tonight, felt very lightheaded and fell. She states that she did not fully pass out but she was very weak and dizzy. Patient did not note chest pain, palpitations, diaphoresis.. -: days(s) Location: abdomen Radiation: non-radiation Quality: dull Consistency: colicky Improves with: none Worsens with: none Associated Symptoms: nausea/vomiting Treatments Prior to Arrival: none - Related Data Home Medications Medication Instructions Recorded Confirmed Citalopram Hydrobromide [CeleXA] 20 mg PO DAILY 07/22/14 12/24/22 Lisinopril-Hctz 20-25 mg 1 tab PO DAILY 07/22/14 12/24/22 [Zestoretic 20-25] Metoprolol Tartrate [Lopressor] 25 mg PO BID 07/22/14 12/24/22 Albuterol Inhaler [Ventolin Hfa 2 puff INHALATION RT-Q6H PRN 12/24/22 12/24/22 Inhaler] Alendronate Sodium 70 mg PO MO 12/24/22 12/24/22 Aspirin EC [Ecotrin Low Dose] 81 mg PO DAILY 12/24/22 12/24/22 Benzonatate [Tessalon Perle] 200 mg PO TID PRN 12/24/22 12/24/22 Ferrous Sulfate [Feosol] 325 mg PO DAILY 12/24/22 12/24/22 LORazepam [Ativan] 1 mg PO BID PRN 12/24/22 12/24/22 Rosuvastatin [Crestor] 10 mg PO DAILY 12/24/22 12/24/22 Spironolactone [Aldactone] 25 mg PO DAILY 12/24/22 12/24/22 Allergies Allergy/AdvReac Type Severity Reaction Status Date / Time No Known Allergies Allergy Verified 12/24/22 17:21 Review of Systems ROS Statement: Those systems with pertinent positive or pertinent negative responses have been documented in the HPI. ROS Other: All systems not noted in ROS Statement are negative. Constitutional: Reports: weakness. Denies: fever, chills Respiratory: Denies: cough, dyspnea Cardiovascular: Denies: chest pain, palpitations, edema Gastrointestinal: Reports: abdominal pain, nausea, vomiting, diarrhea. Denies: hematemesis, melena, hematochezia Genitourinary: Denies: dysuria, hematuria Musculoskeletal: Denies: back pain Skin: Denies: rash Neurological: Denies: headache, weakness Past Medical History Past Medical History: Hyperlipidemia, Hypertension Additional Past Medical History / Comment(s): osteopenia History of Any Multi-Drug Resistant Organisms: None Reported Past Surgical History: Breast Surgery, Hernia Repair, Hysterectomy Past Psychological History: Anxiety, Depression Smoking Status: Former smoker Past Alcohol Use History: Rare Past Drug Use History: None Reported General Exam Limitations: no limitations General appearance: alert, in no apparent distress Head exam: Present: atraumatic, normocephalic Eye exam: Present: normal appearance. Absent: scleral icterus, conjunctival injection Neck exam: Present: normal inspection Respiratory exam: Present: normal lung sounds bilaterally. Absent: respiratory distress, wheezes, rales, rhonchi, stridor Cardiovascular Exam: Present: regular rate, normal rhythm, normal heart sounds. Absent: systolic murmur, diastolic murmur, rubs, gallop GI/Abdominal exam: Present: soft, tenderness (mild right-sided tenderness without rebound or guarding). Absent: distended, guarding, rebound, rigid, mass, pulsatile mass, hernia Extremities exam: Present: normal inspection, normal capillary refill. Absent: pedal edema, calf tenderness Back exam: Present: normal inspection. Absent: CVA tenderness (R), CVA tenderness (L) Neurological exam: Present: alert Skin exam: Present: warm, dry, intact, normal color. Absent: rash Course Vital Signs 09/06/23 09/06/23 09/06/23 02:30 02:52 02:57 Temperature 97.9 F Pulse Rate 102 H 91 93 Respiratory 18 18 22 Rate Blood Pressure 91/65 102/76 O2 Sat by Pulse 98 96 97 Oximetry 09/06/23 09/06/23 09/06/23 03:00 04:00 05:00 Temperature Pulse Rate 92 88 86 Respiratory 20 18 18 Rate Blood Pressure 102/76 99/69 99/69 O2 Sat by Pulse 95 95 95 Oximetry 09/06/23 09/06/23 06:00 07:30 Temperature 97.7 F Pulse Rate 86 91 Respiratory 18 18 Rate Blood Pressure 105/83 112/66 O2 Sat by Pulse 96 99 Oximetry EKG Findings - EKG Results: EKG: interpreted by ERMD, sinus rhythm (rate 89 bpm), normal axis, normal QRS - Blocks, [place], Hypertrophy, ST Abn: Repolarization changes or abnormalities: nonspecific abnormality, ST segment, and/or T wave Medical Decision Making - Lab Data Result diagrams: 09/06/23 03:19 09/06/23 03:19 Lab Results 09/06/23 09/06/23 09/06/23 Range/Units 03:19 03:19 03:19 WBC 12.6 H (3.8-10.6) k/uL RBC 3.74 L (3.80-5.40) m/uL Hgb 12.7 (11.4-16.0) gm/dL Hct 37.0 (34.0-46.0) % MCV 99.0 (80.0-100.0) fL MCH 34.0 (25.0-35.0) pg MCHC 34.3 (31.0-37.0) g/dL RDW 12.9 (11.5-15.5) % Plt Count 267 (150-450) k/uL MPV 7.5 Neutrophils % 91 % Lymphocytes % 4 % Monocytes % 4 % Eosinophils % 0 % Basophils % 0 % Neutrophils # 11.5 H (1.3-7.7) k/uL Lymphocytes # 0.5 L (1.0-4.8) k/uL Monocytes # 0.5 (0-1.0) k/uL Eosinophils # 0.0 (0-0.7) k/uL Basophils # 0.0 (0-0.2) k/uL Sodium 125 L (137-145) mmol/L Potassium 4.0 (3.5-5.1) mmol/L Chloride 91 L (98-107) mmol/L Carbon Dioxide 22 (22-30) mmol/L Anion Gap 12 mmol/L BUN 21 H (7-17) mg/dL Creatinine 0.72 (0.52-1.04) mg/dL Est GFR (CKD-EPI)AfAm >90 (>60 ml/min/1.73 sqM) Est GFR (CKD-EPI)NonAf 82 (>60 ml/min/1.73 sqM) Glucose 116 H (74-99) mg/dL Plasma Lactic Acid Shen 1.1 (0.7-2.0) mmol/L Calcium 8.9 (8.4-10.2) mg/dL Total Bilirubin 0.5 (0.2-1.3) mg/dL AST 27 (14-36) U/L ALT 18 (4-34) U/L Alkaline Phosphatase 64 (38-126) U/L Troponin I (0.000-0.034) ng/mL C-Reactive Protein 7.1 H (<1.0) mg/dL Total Protein 6.7 (6.3-8.2) g/dL Albumin 3.9 (3.5-5.0) g/dL Amylase 56 (30-110) U/L Lipase 54 (23-300) U/L 09/06/23 Range/Units 03:19 WBC (3.8-10.6) k/uL RBC (3.80-5.40) m/uL Hgb (11.4-16.0) gm/dL Hct (34.0-46.0) % MCV (80.0-100.0) fL MCH (25.0-35.0) pg MCHC (31.0-37.0) g/dL RDW (11.5-15.5) % Plt Count (150-450) k/uL MPV Neutrophils % % Lymphocytes % % Monocytes % % Eosinophils % % Basophils % % Neutrophils # (1.3-7.7) k/uL Lymphocytes # (1.0-4.8) k/uL Monocytes # (0-1.0) k/uL Eosinophils # (0-0.7) k/uL Basophils # (0-0.2) k/uL Sodium (137-145) mmol/L Potassium (3.5-5.1) mmol/L Chloride (98-107) mmol/L Carbon Dioxide (22-30) mmol/L Anion Gap mmol/L BUN (7-17) mg/dL Creatinine (0.52-1.04) mg/dL Est GFR (CKD-EPI)AfAm (>60 ml/min/1.73 sqM) Est GFR (CKD-EPI)NonAf (>60 ml/min/1.73 sqM) Glucose (74-99) mg/dL Plasma Lactic Acid Shen (0.7-2.0) mmol/L Calcium (8.4-10.2) mg/dL Total Bilirubin (0.2-1.3) mg/dL AST (14-36) U/L ALT (4-34) U/L Alkaline Phosphatase (38-126) U/L Troponin I <0.012 (0.000-0.034) ng/mL C-Reactive Protein (<1.0) mg/dL Total Protein (6.3-8.2) g/dL Albumin (3.5-5.0) g/dL Amylase (30-110) U/L Lipase (23-300) U/L Disposition Clinical Impression: Colitis, Hyponatremia Disposition: ADMITTED IP TO THIS HOSP Condition: Good Is patient prescribed a controlled substance at d/c from ED?: No Referrals: Nikhil Silva MD [Primary Care Provider] - 1-2 days
[2023-09-06] MEDS: SODIUM CHLORIDE 0.9% 1,000 ML IV SCH ×2 (07:51→14:15)
[2023-09-06] MEDS: PANTOPRAZOLE 40 MG/10 ML VIAL IV SCH (08:31)
[2023-09-06] MEDS ORDERED: ONDANSETRON 4 MG/2 ML VIAL IVP PRN (12:21)
--- NOTE | 2023-09-06 12:23 | P.GSCN ---
History of Present Illness Consult date: 09/06/23 Reason for Consult: Ascending colitis. History of present illness: Patient is had ongoing nausea and vomiting. She developed acute right upper quadrant pain over the past few days. She came to the emergency department. Computed tomography scan was performed showing colitis of the day; and proximal transverse colon. Review of Systems - Constitutional Denies fever, Denies weight loss - EENT Ears, nose, mouth and throat: Denies dysphagia - Cardiovascular Denies chest pain, Denies shortness of breath - Respiratory Denies cough, Denies 7 - Gastrointestinal Reports abdominal pain (Right upper quadrant), Reports bloating, Reports nausea - Genitourinary Genitourinary: Denies dysuria, Denies hematuria - Integumentary Denies rash, Denies unusual bruising - Neurological Denies headaches, Denies syncope - Endocrine Denies as per HPI, Denies cold intolerance, Denies deepening of the voice, Denies excessive sweating, Denies excessive thirst, Denies fatigue, Denies flushing, Denies heat intolerance, Denies high blood sugars, Denies increase in ring/shoe/hat size, Denies low blood sugars, Denies nocturia, Denies palpitations, Denies polydipsia, Denies polyphagia, Denies polyuria, Denies proptosis, Denies recent glucocorticoid use, Denies thyroid mass, Denies weight change - Hematologic/Lymphatic Denies easy bleeding, Denies easy bruising Past Medical History Past Medical History: Hyperlipidemia, Hypertension Additional Past Medical History / Comment(s): osteopenia History of Any Multi-Drug Resistant Organisms: None Reported Past Surgical History: Breast Surgery, Hernia Repair, Hysterectomy Past Psychological History: Anxiety, Depression Smoking Status: Former smoker Past Alcohol Use History: Rare Past Drug Use History: None Reported Medications and Allergies Home Medications Medication Instructions Recorded Confirmed Type Citalopram Hydrobromide [CeleXA] 20 mg PO DAILY 07/22/14 12/24/22 History Lisinopril-Hctz 20-25 mg 1 tab PO DAILY 07/22/14 12/24/22 History [Zestoretic 20-25] Metoprolol Tartrate [Lopressor] 25 mg PO BID 07/22/14 12/24/22 History Albuterol Inhaler [Ventolin Hfa 2 puff INHALATION RT-Q6H PRN 12/24/22 12/24/22 History Inhaler] Alendronate Sodium 70 mg PO MO 12/24/22 12/24/22 History Aspirin EC [Ecotrin Low Dose] 81 mg PO DAILY 12/24/22 12/24/22 History Benzonatate [Tessalon Perle] 200 mg PO TID PRN 12/24/22 12/24/22 History Ferrous Sulfate [Feosol] 325 mg PO DAILY 12/24/22 12/24/22 History LORazepam [Ativan] 1 mg PO BID PRN 12/24/22 12/24/22 History Rosuvastatin [Crestor] 10 mg PO DAILY 12/24/22 12/24/22 History Spironolactone [Aldactone] 25 mg PO DAILY 12/24/22 12/24/22 History Allergies Allergy/AdvReac Type Severity Reaction Status Date / Time No Known Allergies Allergy Verified 12/24/22 17:21 Surgical - Exam Vital Signs Temp Pulse Resp BP Pulse Ox 97.9 F 102 H 18 91/65 98 09/06/23 02:30 09/06/23 02:30 09/06/23 02:30 09/06/23 02:30 09/06/23 02:30 - General well developed, well nourished, no distress - Eyes normal ocular movement, no icteric - ENT no hearing loss, no congestion - Neck no masses, trachea midline - Respiratory normal respiratory effort, clear to auscultation - Cardiovascular Rhythm: regular - Abdomen Abdomen: tender (Right upper quadrant), bowel sounds (Normal), organomegaly (None), guarding (None) - Integumentary no rash, no abnormal pigmentation Results - Labs 09/06/23 03:19 09/06/23 03:19 Abnormal Lab Results - Last 24 Hours (Table) 09/06/23 09/06/23 Range/Units 03:19 03:19 WBC 12.6 H (3.8-10.6) k/uL RBC 3.74 L (3.80-5.40) m/uL Neutrophils # 11.5 H (1.3-7.7) k/uL Lymphocytes # 0.5 L (1.0-4.8) k/uL Sodium 125 L (137-145) mmol/L Chloride 91 L (98-107) mmol/L BUN 21 H (7-17) mg/dL Glucose 116 H (74-99) mg/dL C-Reactive Protein 7.1 H (<1.0) mg/dL Diabetes panel 09/06/23 Range/Units 03:19 Sodium 125 L (137-145) mmol/L Potassium 4.0 (3.5-5.1) mmol/L Chloride 91 L (98-107) mmol/L Carbon Dioxide 22 (22-30) mmol/L BUN 21 H (7-17) mg/dL Creatinine 0.72 (0.52-1.04) mg/dL Glucose 116 H (74-99) mg/dL Calcium 8.9 (8.4-10.2) mg/dL AST 27 (14-36) U/L ALT 18 (4-34) U/L Alkaline Phosphatase 64 (38-126) U/L Total Protein 6.7 (6.3-8.2) g/dL Albumin 3.9 (3.5-5.0) g/dL Calcium panel 09/06/23 Range/Units 03:19 Calcium 8.9 (8.4-10.2) mg/dL Albumin 3.9 (3.5-5.0) g/dL Pituitary panel 09/06/23 Range/Units 03:19 Sodium 125 L (137-145) mmol/L Potassium 4.0 (3.5-5.1) mmol/L Chloride 91 L (98-107) mmol/L Carbon Dioxide 22 (22-30) mmol/L BUN 21 H (7-17) mg/dL Creatinine 0.72 (0.52-1.04) mg/dL Glucose 116 H (74-99) mg/dL Calcium 8.9 (8.4-10.2) mg/dL Adrenal panel 09/06/23 Range/Units 03:19 Sodium 125 L (137-145) mmol/L Potassium 4.0 (3.5-5.1) mmol/L Chloride 91 L (98-107) mmol/L Carbon Dioxide 22 (22-30) mmol/L BUN 21 H (7-17) mg/dL Creatinine 0.72 (0.52-1.04) mg/dL Glucose 116 H (74-99) mg/dL Calcium 8.9 (8.4-10.2) mg/dL Total Bilirubin 0.5 (0.2-1.3) mg/dL AST 27 (14-36) U/L ALT 18 (4-34) U/L Alkaline Phosphatase 64 (38-126) U/L Total Protein 6.7 (6.3-8.2) g/dL Albumin 3.9 (3.5-5.0) g/dL Assessment and Plan Assessment: Colitis of the ascending colon and proximal transverse. Abdominal pain right upper quadrant due to above Plan: IV antibiotics. May need nausea workup including upper endoscopy or upper GI.
[2023-09-06] MEDS ORDERED: ALBUTEROL NEBULIZED 2.5 MG/3 ML INHALATION PRN (17:20)
--- NOTE | 2023-09-06 17:20 | P.HPIM ---
History of Present Illness H&P Date: 09/06/23 Chief Complaint: Abdominal pain 78-year-old woman history of hypertension, hyperlipidemia who presents to have evaluation for constellation of symptoms that been going on for nearly 3 days now. The patient states that she started having nausea and vomiting as well as some right-sided abdominal pain. She also has had a number of episodes of diarrhea. She has not noted bloody or dark tarry stools. No blood or coffee- ground emesis. She states that she has been feeling progressively weaker over the course of yesterday into tonight. The patient had to get up to use the bathroom tonight, felt very lightheaded and fell. She states that she did not fully pass out but she was very weak and dizzy. Patient did not note chest pain, palpitations, diaphoresis. Blood work completed related to Lipitor 10.6, hemoglobin of 12.7 and platelet count of 267, sodium 125, BUN 21/creatinine of 0.72 and blood glucose of 116 CT of the abdomen reveals colitis of the ascending colon, colonic diverticulosis, large hiatal hernia and right inguinal hernia containing a portion of the bladder wall Review of Systems REVIEW OF SYSTEMS: CONSTITUTIONAL: No fever, no malaise, no fatigue. HEENT: No recent visual problems or hearing problems. Denied any sore throat. CARDIOVASCULAR: No chest pain, orthopnea, PND, no palpitations, no syncope. PULMONARY: No shortness of breath, no cough, no hemoptysis. GASTROINTESTINAL: No diarrhea, no nausea, no vomiting, no abdominal pain. NEUROLOGICAL: No headaches, no weakness, no numbness. HEMATOLOGICAL: Denies any bleeding or petechiae. GENITOURINARY: Denies any burning micturition, frequency, or urgency. MUSCULOSKELETAL/RHEUMATOLOGICAL: Denies any joint pain, swelling, or any muscle pain. ENDOCRINE: Denies any polyuria or polydipsia. The rest of the 14-point review of systems is negative. Past Medical History Past Medical History: Hyperlipidemia, Hypertension Additional Past Medical History / Comment(s): osteopenia History of Any Multi-Drug Resistant Organisms: None Reported Past Surgical History: Breast Surgery, Hernia Repair, Hysterectomy Past Psychological History: Anxiety, Depression Smoking Status: Former smoker Past Alcohol Use History: Rare Past Drug Use History: None Reported Medications and Allergies Home Medications Medication Instructions Recorded Confirmed Type Citalopram Hydrobromide [CeleXA] 20 mg PO DAILY 07/22/14 09/06/23 History Lisinopril-Hctz 20-25 mg 1 tab PO DAILY 07/22/14 09/06/23 History [Zestoretic 20-25] Metoprolol Tartrate [Lopressor] 25 mg PO BID 07/22/14 09/06/23 History Albuterol Inhaler [Ventolin Hfa 2 puff INHALATION RT-Q6H PRN 12/24/22 09/06/23 History Inhaler] Alendronate Sodium 70 mg PO MO 12/24/22 09/06/23 History Aspirin EC [Ecotrin Low Dose] 81 mg PO DAILY 12/24/22 09/06/23 History Ferrous Sulfate [Feosol] 325 mg PO DAILY 12/24/22 09/06/23 History LORazepam [Ativan] 1 mg PO BID PRN 12/24/22 09/06/23 History Rosuvastatin [Crestor] 10 mg PO DAILY 12/24/22 09/06/23 History Spironolactone [Aldactone] 25 mg PO DAILY 12/24/22 09/06/23 History Pantoprazole [Protonix] 40 mg PO DAILY 09/06/23 09/06/23 History Allergies Allergy/AdvReac Type Severity Reaction Status Date / Time No Known Allergies Allergy Verified 09/06/23 13:33 Physical Exam Vitals: Vital Signs Temp Pulse Resp BP Pulse Ox 09/06/23 07:30 97.7 F 91 18 112/66 99 09/06/23 06:00 86 18 105/83 96 09/06/23 05:00 86 18 99/69 95 09/06/23 04:00 88 18 99/69 95 09/06/23 03:00 92 20 102/76 95 09/06/23 02:57 93 22 97 09/06/23 02:52 91 18 102/76 96 09/06/23 02:30 97.9 F 102 H 18 91/65 98 Intake and Output 09/05/23 09/06/23 09/06/23 22:59 06:59 14:59 Other: Weight 63.503 kg General appearance: alert, in no apparent distress Head exam: Present: atraumatic, normocephalic Eye exam: Present: normal appearance. Absent: scleral icterus, conjunctival injection Neck exam: Present: normal inspection Respiratory exam: Present: normal lung sounds bilaterally. Absent: respiratory distress, wheezes, rales, rhonchi, stridor Cardiovascular Exam: Present: regular rate, normal rhythm, normal heart sounds. Absent: systolic murmur, diastolic murmur, rubs, gallop GI/Abdominal exam: Present: soft, tenderness (mild right-sided tenderness without rebound or guarding). Absent: distended, guarding, rebound, rigid, mass, pulsatile mass, hernia Extremities exam: Present: normal inspection, normal capillary refill. Absent: pedal edema, calf tenderness Back exam: Present: normal inspection. Absent: CVA tenderness (R), CVA tenderness (L) Neurological exam: Present: alert Skin exam: Present: warm, dry, intact, normal color. Absent: rash Results CBC & Chem 7: 09/06/23 03:19 09/06/23 03:19 Labs: Abnormal Lab Results - Last 24 Hours (Table) 09/06/23 09/06/23 Range/Units 03:19 03:19 WBC 12.6 H (3.8-10.6) k/uL RBC 3.74 L (3.80-5.40) m/uL Neutrophils # 11.5 H (1.3-7.7) k/uL Lymphocytes # 0.5 L (1.0-4.8) k/uL Sodium 125 L (137-145) mmol/L Chloride 91 L (98-107) mmol/L BUN 21 H (7-17) mg/dL Glucose 116 H (74-99) mg/dL C-Reactive Protein 7.1 H (<1.0) mg/dL Assessment and Plan Assessment: 1. Colitis; possibly infectious, given elevated white blood count of 12.6 and CRP of 7.1 - We will start patient on IV antibiotics in form of Rocephin and Flagyl - Clear liquid diet and advance as tolerated - Surgery is consulted 2. Persistent nausea; patient reports nausea every morning; we will start patient on IV Protonix -- Patient will need further evaluation with GI follow-up as an outpatient 2. Hyponatremia; sodium at 125; patient is presenting fluids in form of normal saline at a rate of 100 mL an hour ; monitor electrolytes closely 3. Leukocytosis; likely related to colitis; monitor CBC, CMP and pro-calcitonin 4. Hypertension; lisinoprilHCTZ 2024 milligrams 1 daily; metoprolol 25 mg twice a day 5. Hyperlipidemia; Crestor 10 mg daily DVT prophylaxis; SCDs CODE STATUS; full code
[2023-09-06] MEDS: metroNIDAZOLE-NS PMX 500 MG in SALINE 1 100ML.BAG IVPB SCH (17:48)
[2023-09-06] MEDS: METOPROLOL TARTRATE 25 MG TAB PO SCH (20:24)
[2023-09-06] MEDS: LORazepam 1 MG TAB PO PRN (20:27)
[2023-09-07] MEDS: SODIUM CHLORIDE 0.9% 1,000 ML IV SCH ×3 (00:24→14:57)
[2023-09-07] MEDS: metroNIDAZOLE-NS PMX 500 MG in SALINE 1 100ML.BAG IVPB SCH ×3 (00:27→15:24)
[2023-09-07] MEDS: PANTOPRAZOLE 40 MG/10 ML VIAL IV SCH (08:06)
[2023-09-07] MEDS: METOPROLOL TARTRATE 25 MG TAB PO SCH (08:09)
[2023-09-07] MEDS: LORazepam 1 MG TAB PO PRN (08:12)
[2023-09-07] MEDS ORDERED: LISINOPRIL-HCTZ 20-25 MG 1 EACH TAB PO SCH (09:00)
[2023-09-07] MEDS ORDERED: CITALOPRAM HYDROBROMIDE 20 MG TAB PO SCH (09:00)
[2023-09-07 10:27] LABS: Basophils # (A) 0.02 X 10*3/uL (0.00-0.10); Basophils % (A) 0.4 %; Eosinophils # (A) 0.04 X 10*3/uL (0.04-0.35); Eosinophils % (A) 0.7 %; HCT 29.8 % (37.2-46.3); HGB 9.6 g/dL (12.0-15.0); Lymphocytes # (A) 0.92 X 10*3/uL (0.90-5.00); Lymphocytes % (A) 16.5 %; MCH 32.2 pg (27.0-32.0); MCHC 32.2 g/dL (32.0-37.0); Mean Platelet Volume 10.2 FL (9.5-12.2); Monocytes # (A) 0.95 X 10*3/uL (0.20-1.00); NRBC Per 100 WBC 0 X 10*3/uL (0.00-0.01); Neutrophils # (A) 3.64 X 10*3/uL (1.80-7.70); Neutrophils % (A) 65.2 %; Platelet Count 216 X 10*3/uL (140-440); RBC 2.98 X 10*6/uL (4.10-5.20); RDW 13.4 % (11.5-14.5); WBC 5.58 X 10*3/uL (4.50-10.00)
[2023-09-07 11:01] LABS: BUN/Creat Ratio 22.67 Ratio (12.00-20.00); Blood Urea Nitrogen 13.6 mg/dL (9.0-27.0); Glucose 87 mg/dL (70-110)
[2023-09-07 11:02] LABS: Calcium 8.1 mg/dL (8.7-10.3); Carbon Dioxide 23.2 mmol/L (21.6-31.8); Chloride 101 mmol/L (96-109); Potassium 3.8 mmol/L (3.5-5.5); Sodium 134 mmol/L (135-145)
--- NOTE | 2023-09-07 13:52 | P.PN ---
Subjective Progress Note Date: 09/07/23 CHIEF COMPLAINT: Colitis HISTORY OF PRESENT ILLNESS: The patient is a 78-year-old admitted for colitis. Clinically, she feels well. She is tolerating clear liquid diet. She denies abdominal pain. Family is at bedside. ROS: No reports of nausea and vomiting. No bowel movements. No fevers or chills. No new chest pain. No productive sputum PHYSICAL EXAM: VITAL SIGNS: Reviewed CONSTITUTIONAL: Well developed and in no acute distress. EYES: Conjuctivae without sclera icterus. Extraocular movements grossly intact. HEAD, EARS, NOSE, THROAT: Moist buccal mucosa. Head is atraumatic, normocephal ic. Hears conversational speech. No nasal drainage. RESPIRATORY: Non-labored respirations and equal bilateral excursions. CARDIOVASCULAR: Palpable 2+ radial pulses. ABDOMEN:No peritonitis. MUSCULOSKELETAL: No gross deformity of the lower extremities noted. No clubbing. No cyanosis. SKIN: Good skin turgor. Well perfused. NEUROLOGIC: Cranial nerves II through XII grossly intact. No focal or lateralizing signs. PSYCH: Appropriate affect. Alert and oriented to person, place and time. CLINICAL LABS: Reviewed. WBC normal STUDIES: CT of the abdomen and pelvis and the pelvis demonstrated an ascending colitis. This is my independent interpretation. ASSESSMENT: 1. Colitis PLAN: 1. Recommend low fiber diet for 7 days. 2. Antibiotics advised for 2 weeks. 3. Clinically stable for possible discharge. Objective - Vital Signs Vital signs: Vital Signs Temp 98.6 F 09/07/23 07:00 Pulse 78 09/07/23 07:00 Resp 16 09/07/23 07:00 BP 94/59 09/07/23 08:15 Pulse Ox 96 09/07/23 07:00 FiO2 Intake & Output 09/06/23 09/07/23 09/07/23 18:59 06:59 18:59 Intake Total 90 180 Balance 90 180 Weight 63.503 kg Intake: Oral 90 180 Other: Voiding Method Toilet # Voids 1 1 # Bowel Movements 1 2 - Labs CBC & Chem 7: 09/07/23 04:26 09/07/23 04:26 Labs: Abnormal Lab Results - Last 24 Hours (Table) 09/07/23 09/07/23 09/07/23 Range/Units 04:26 04:26 04:26 RBC 2.98 L (4.10-5.20) X 10*6/uL Hgb 9.6 L (12.0-15.0) g/dL Hct 29.8 L (37.2-46.3) % MCV 100.0 H (80.0-97.0) FL MCH 32.2 H (27.0-32.0) pg Sodium 134 L (135-145) mmol/L BUN/Creatinine Ratio 22.67 H (12.00-20.00) Ratio Calcium 8.1 L (8.7-10.3) mg/dL Procalcitonin 0.14 H (0.02-0.09) ng/mL
[2023-09-07 14:07] VITALS: BP 94/62; PULSE 57; RESP 17; TEMP 97.9
--- NOTE | 2023-09-07 18:05 | P.DS ---
Providers Date of admission: 09/06/23 07:17 Expected date of discharge: 09/07/23 Attending physician: Hazel Gonzales Consults: 09/06/23 07:23 Consult Physician Routine Consulting Provider: Sandy Elena Consult Reason/Comments: abdominal pain. Colitis Do you want consulting provider notified?: Yes Primary care physician: [facility] Course: 78-year-old woman history of hypertension, hyperlipidemia who presents to have evaluation for constellation of symptoms that been going on for nearly 3 days now. The patient states that she started having nausea and vomiting as well as some right-sided abdominal pain. She also has had a number of episodes of diarrhea. She has not noted bloody or dark tarry stools. No blood or coffee- ground emesis. She states that she has been feeling progressively weaker over the course of yesterday into tonight. The patient had to get up to use the bathroom tonight, felt very lightheaded and fell. She states that she did not f ully pass out but she was very weak and dizzy. Patient did not note chest pain, palpitations, diaphoresis. Blood work completed related to Lipitor 10.6, hemoglobin of 12.7 and platelet count of 267, sodium 125, BUN 21/creatinine of 0.72 and blood glucose of 116 CT of the abdomen reveals colitis of the ascending colon, colonic diverticulosis, large hiatal hernia and right inguinal hernia containing a portion of the bladder wall Colitis of the ascending colon and proximal transverse. Abdominal pain right upper quadrant due to above IV antibiotics. May need nausea workup including upper endoscopy or upper GI. Patient was evaluated by surgery 1. Recommend low fiber diet for 7 days. 2. Antibiotics advised for 2 weeks. Patient is being discharged in a stable condition Patient Condition at Discharge: Good Plan - Discharge Summary New Discharge Prescriptions: New cefUROXime axetiL [Ceftin] 500 mg PO BID 13 Days #26 tab metroNIDAZOLE [Flagyl] 500 mg PO TID 13 Days #39 tab Continue Metoprolol Tartrate [Lopressor] 25 mg PO BID Citalopram Hydrobromide [CeleXA] 20 mg PO DAILY Lisinopril-Hctz 20-25 mg [Zestoretic 20-25] 1 tab PO DAILY LORazepam [Ativan] 1 mg PO BID PRN PRN Reason: Anxiety Pantoprazole [Protonix] 40 mg PO DAILY Rosuvastatin [Crestor] 10 mg PO DAILY Alendronate Sodium 70 mg PO MO Spironolactone [Aldactone] 25 mg PO DAILY Albuterol Inhaler [Ventolin Hfa Inhaler] 2 puff INHALATION RT-Q6H PRN PRN Reason: Shortness Of Breath Ferrous Sulfate [Iron (65 MG Elemental)] 325 mg PO DAILY Aspirin EC [Ecotrin Low Dose] 81 mg PO DAILY Discharge Medication List Citalopram Hydrobromide [CeleXA] 20 mg PO DAILY 07/22/14 [History] Lisinopril-Hctz 20-25 mg [Zestoretic 20-25] 1 tab PO DAILY 07/22/14 [History] Metoprolol Tartrate [Lopressor] 25 mg PO BID 07/22/14 [History] Albuterol Inhaler [Ventolin Hfa Inhaler] 2 puff INHALATION RT-Q6H PRN 12/24/22 [History] Alendronate Sodium 70 mg PO MO 12/24/22 [History] Aspirin EC [Ecotrin Low Dose] 81 mg PO DAILY 12/24/22 [History] Ferrous Sulfate [Iron (65 MG Elemental)] 325 mg PO DAILY 12/24/22 [History] LORazepam [Ativan] 1 mg PO BID PRN 12/24/22 [History] Rosuvastatin [Crestor] 10 mg PO DAILY 12/24/22 [History] Spironolactone [Aldactone] 25 mg PO DAILY 12/24/22 [History] Pantoprazole [Protonix] 40 mg PO DAILY 09/06/23 [History] cefUROXime axetiL [Ceftin] 500 mg PO BID 13 Days #26 tab 09/07/23 [Rx] metroNIDAZOLE [Flagyl] 500 mg PO TID 13 Days #39 tab 09/07/23 [Rx] Follow up Appointment(s)/Referral(s): Nikhil Silva MD [Primary Care Provider] - 1-2 days Sandy Elena MD [STAFF PHYSICIAN] - 2 Weeks (Will need referral from Dr Silva) Patient Instructions/Handouts: Low Fiber Diet (DC), Colitis (ED) Discharge Disposition: HOME SELF-CARE
== END 2023-09-07 15:39 | disposition home or self-care (01) ==
LOC: EC 02:27 → 6NMEDSUR 07:17
PROVIDERS: ADMIT Hospitalist; ATTEND Hospitalist
DX: K52.9 Noninfective gastroenteritis and colitis, unspecified (principal); K57.30 Diverticulosis of large intestine without perforation or abscess without bleeding; E87.1 Hypo-osmolality and hyponatremia; D72.829 Elevated white blood cell count, unspecified; K40.90 Unilateral inguinal hernia, without obstruction or gangrene, not specified as recurrent; K44.9 Diaphragmatic hernia without obstruction or gangrene; I10 Essential (primary) hypertension; E78.5 Hyperlipidemia, unspecified; M85.80 Other specified disorders of bone density and structure, unspecified site; Z87.891 Personal history of nicotine dependence; F32.A Depression, unspecified; F41.9 Anxiety disorder, unspecified; Z90.710 Acquired absence of both cervix and uterus; Z79.899 Other long term (current) drug therapy; Z79.82 Long term (current) use of aspirin
CPT/HCPCS: 96376 ×2; 96361 ×2; 96365; 96366 ×2; 96367; 96375; 99285; 36415; 93005; 80053; 80048; 82150; 83605; 83690; 84484; 85025 ×2; 86140; 87324; 84145; 74176; G0378 ×2; J2405; J0696 ×2; C9113 ×2; J1836 ×2

== ENCOUNTER → 2024-08-23 | Outpatient (CLI) | payer MEDICARE ==
--- NOTE | 2024-08-30 10:05 | MM ---
Reason for Exam: Screening (asymptomatic). Last mammogram was performed 1 year(s) and 5 month(s) ago. Patient History: Menarche at age 13. First Full-Term at age 22. Left ovary removed at age 51. Right ovary removed at age 51. Hysterectomy at age 51. Postmenopausal. Benign Excisional Biopsy on the left side. Benign Excisional Biopsy on the left side. Benign Excisional Biopsy on the left side. Maternal aunt had breast cancer. Risk Values: Stephany 5 year model risk: 2.3%. NCI Lifetime model risk: 4.1%. Prior Study Comparison: 08/30/2021 Left Diagnostic Mammogram, [facility]. 02/27/2022 Left MG 3D diag mammo w/cad LT, [facility]. 03/20/2023 Bilateral MG 3D screening mammo w/cad, [facility]. Tissue Density: The breasts are almost entirely fatty. Findings: Analyzed By CAD. Right breast: There is no suspicious group of microcalcifications or new suspicious mass. Benign-appearing calcifications right breast. Left breast: There is no suspicious group of microcalcifications or new suspicious mass. Benign-appearing calcifications left breast. Overall Assessment: Benign, BI-RAD 2 Management: Screening Mammogram of both breasts in [address] [facility] will attempt to contact patient to return for supplemental views and ultrasound if indicated. Patient should continue monthly self-breast exams. A clinical breast exam by your physician is recommended on an annual basis. This exam should not preclude additional follow-up of suspicious palpable abnormalities. Note on Stephany scores and lifetime risk: 1. A Stephany score greater than 3% is considered moderate risk. If this is the case, consider specialist referral to assess eligibility for a risk reducing agent. 2. If overall lifetime risk for the development of breast cancer is 20% or higher, the patient may qualify for future screening with alternating mammogram and breast MRI. [facility], , 08/30/2024 10:02 AM. Electronically signed and approved by: Omari Garibay DO
== END | disposition home or self-care (01) ==
LOC: RADMAMWWP 14:10
PROVIDERS: ATTEND Internal Medicine Geriatric Medicine
DX: Z12.31 Encounter for screening mammogram for malignant neoplasm of breast (principal); Z78.0 Asymptomatic menopausal state; Z80.3 Family history of malignant neoplasm of breast; Z90.722 Acquired absence of ovaries, bilateral; R92.313 Mammographic fatty tissue density, bilateral breasts
CPT/HCPCS: 77063; 77067